=== PATIENT | female | born 1945 | race Caucasian/White ===

== ENCOUNTER 2018-07-06 16:44 | Emergency (ER) | payer OTHER ==
[~2018-07-06] VITALS: Ht 167.6 cm; Wt 104.3 kg
[2018-07-06 17:13] VITALS: BP 129/77
[2018-07-06 19:00] LABS: Urine Bacteria FEW /hpf (None Seen); Urine Blood Negative /uL (Negative); Urine Specific Gravity 1.009 (1.001-1.035); Urine WBC <1 /hpf (0 - 5)
== END 2018-07-07 02:15 | disposition left against medical advice (07) ==
LOC: ER 16:44
DX: R07.89 Other chest pain (principal); R42 Dizziness and giddiness; R11.0 Nausea; Z53.21 Procedure and treatment not carried out due to patient leaving prior to being seen by health care provider
CPT/HCPCS: 71046; 81001; 93005